=== PATIENT | female | born 2000 | race Two or more races ===

== ENCOUNTER 2020-06-09 22:51 | Emergency (ER) | payer OTHER ==
[2020-06-09 23:10] VITALS: BP 139/87
[2020-06-10] MEDS ORDERED: ACETAMINOPHEN 325 MG TABLET PO ONE (00:07)
--- NOTE | 2020-06-10 00:09 | ER Document Report ---
ED Medical Screen (RME) - General Chief Complaint: Vaginal Bleeding Stated Complaint: VAGINAL BLEEDING Time Seen by Provider: 06/10/20 00:04 Mode of Arrival: Ambulatory Information source: Patient Notes: HPI; 19-year-old female presents to the emergency room complaining of abdominal cramping for the past 2 weeks that is gotten worse today. Also complaining of vaginal bleeding today. LMP April 26. Sexually active no use of control. Has not had a test. Denies any previous pregnancies. PE: Alert and oriented x3. Lungs: Clear to auscultation without rales, rhonchi, wheezes. Heart: Grade 2 out of 6 systolic murmur without rubs or gallops. Unable to do full exam in triage. I have greeted and performed a rapid initial assessment of this patient. A comprehensive ED assessment and evaluation of the patient, analysis of test results and completion of the medical decision making process will be conducted by additional ED providers. I have specifically instructed the patient or family members with the patient to immediately return to any nursing staff should anything change in the patient's condition or with their chief complaint. TRAVEL OUTSIDE OF THE [place] IN LAST 30 DAYS: No Physical Exam - Vital signs Vitals: Temp Pulse Resp BP Pulse Ox 98.6 F 117 H 16 139/87 H 100 06/09/20 22:52 06/09/20 22:52 06/09/20 22:52 06/09/20 22:52 06/09/20 22:52 Course - Vital Signs Vital signs: Temp Pulse Resp BP Pulse Ox 98.6 F 117 H 16 139/87 H 100 06/09/20 22:52 06/09/20 22:52 06/09/20 22:52 06/09/20 22:52 06/09/20 22:52
[2020-06-10 01:27] LABS: APPEARANCE,URINE SLIGHTLY-CLOUDY; BILIRUBIN,URINE NEGATIVE (NEGATIVE); COLOR,URINE YELLOW; GLUCOSE, URINE NEGATIVE (NEGATIVE); KETONES,URINE NEGATIVE (NEGATIVE); LEUKOCYTE ESTERASE,URINE TRACE (NEGATIVE); NITRITE,URINE NEGATIVE (NEGATIVE); PROTEIN,URINE NEGATIVE (NEGATIVE); UROBILINOGEN,URINE NEGATIVE mg/dL (<2.0)
[2020-06-10 01:27] LABS: ABSOLUTE EOSINOPHILS # (AUTO) 0.4 10^3/uL (0.0-0.6); ABSOLUTE LYMPHOCYTES (AUTO) 2.8 10^3/uL (0.5-4.7); ABSOLUTE MONOCYTES (AUTO) 0.5 10^3/uL (0.1-1.4); ABSOLUTE NEUT (AUTO) 3.4 10^3/uL (1.7-8.2); BASOPHILS % (AUTO) 0.7 % (0-2); EOSINOPHILS % (AUTO) 6.1 % (0-6); HEMATOCRIT 44.7 % (36.0-47.0); HEMOGLOBIN 15.5 g/dL (12.0-15.5); LYMPHOCYTES % (AUTO) 38.9 % (13-45); MEAN CORPUSCULAR HEMOGLOBIN 29.7 pg (27.0-33.4); MEAN CORPUSCULAR HGB CONC 34.7 g/dL (32.0-36.0); MEAN CORPUSCULAR VOLUME 86 fl (80-97); MONOCYTES % (AUTO) 7.3 % (3-13); PLATELET COUNT 226 10^3/uL (150-450); RED BLOOD COUNT 5.22 10^6/uL (3.72-5.28); RED CELL DISTRIBUTION WIDTH 13.5 % (11.5-14.0); TOTAL CELLS COUNTED % (AUTO) 100 %; WHITE BLOOD COUNT 7.2 10^3/uL (4.0-10.5)
[2020-06-10 01:47] LABS: ALBUMIN 4.8 g/dL (3.5-5.0); ALKALINE PHOSPHATASE 60 U/L (38-126); ANION GAP 10 (5-19); ASPARTATE AMINO TRANSFERASE 24 U/L (14-36); BILIRUBIN,TOTAL 0.4 mg/dL (0.2-1.3); BLOOD UREA NITROGEN 16 mg/dL (7-20); CALCIUM 9.9 mg/dL (8.4-10.2); CARBON DIOXIDE 26 mmol/L (22-30); CHLORIDE 104 mmol/L (98-107); GLUCOSE 113 mg/dL (75-110); TOTAL PROTEIN 7.7 g/dL (6.3-8.2)
== END 2020-06-10 04:25 | disposition left against medical advice (07) ==
LOC: ER 22:51
DX: N93.9 Abnormal uterine and vaginal bleeding, unspecified (principal); R10.9 Unspecified abdominal pain; Z53.20 Procedure and treatment not carried out because of patient's decision for unspecified reasons
CPT/HCPCS: 36415; 80053; 81001; 84702; 85025; 86900; 86901; 99281

== ENCOUNTER 2020-09-18 21:14 | Emergency (ER) | payer OTHER ==
[2020-09-18] MEDS ORDERED: ACETAMINOPHEN 325 MG TABLET PO ONE (21:42)
--- NOTE | 2020-09-18 21:43 | ER Document Report ---
ED Medical Screen (RME) - General Chief Complaint: Fever Stated Complaint: FEVER,SORE THROAT,COUGH Time Seen by Provider: 09/18/20 21:32 Mode of Arrival: Ambulatory Information source: Patient Notes: HPI; 19-year-old female past medical history significant for anemia presents to the emergency room complaining of subjective fever, sore throat, runny nose, chills, and headache for the past 4 days. Has been using rrwi-kda-mclglfy cold medicine without relief. No COVID-19 exposure. Hrmrsi-qq-lmx with similar symptoms. No other known ill contacts. PE: Alert and oriented x3. Lungs: Clear to auscultation without rales, rhonchi, wheezes. Heart: Tachycardic without murmurs, rubs, gallops. I have greeted and performed a rapid initial assessment of this patient. A comprehensive ED assessment and evaluation of the patient, analysis of test results and completion of the medical decision making process will be conducted by additional ED providers. I have specifically instructed the patient or family members with the patient to immediately return to any nursing staff should anything change in the patient's condition or with their chief complaint. TRAVEL OUTSIDE OF THE [place] IN LAST 30 DAYS: No Physical Exam - Vital signs Vitals: Temp Pulse Resp BP Pulse Ox 98.2 F 114 H 18 130/87 H 95 09/18/20 21:25 09/18/20 21:25 09/18/20 21:25 09/18/20 21:25 09/18/20 21:25 Course - Vital Signs Vital signs: Temp Pulse Resp BP Pulse Ox 98.2 F 114 H 18 130/87 H 95 09/18/20 21:25 09/18/20 21:25 09/18/20 21:25 09/18/20 21:25 09/18/20 21:25
--- NOTE | 2020-09-18 22:46 | RADIOLOGY REPORT (SQ) ---
EXAM DESCRIPTION: Site: CHEST SINGLE VIEW RP: XR CHEST 1 VIEW CLINICAL HISTORY: 19 years Female; cough; COMPARISON: None. FINDINGS: Lungs: Lungs are clear, with no focal infiltrate, pneumothorax, or pleural effusion. Mediastinum: Mediastinum is within normal limits for this positioning. Bones: Thoracolumbar scoliosis is noted. No acute bone findings. IMPRESSION: 1. No acute pulmonary findings. 2. Scoliosis
[2020-09-19 01:38] LABS: A TYPE INFLUENZA AG NEGATIVE (NEGATIVE); B INFLUENZA AG NEGATIVE (NEGATIVE)
--- NOTE | 2020-09-19 03:46 | ER Document Report ---
ED Flu Like - General Chief Complaint: Flu Symptoms Stated Complaint: FEVER,SORE THROAT,COUGH Time Seen by Provider: 09/18/20 21:32 Mode of Arrival: Ambulatory TRAVEL OUTSIDE OF THE [place] IN LAST 30 DAYS: No - HPI Notes: Patient is a 19-year-old female with a past medical history of anemia who presents with cough, headaches, sore throat for the past 4 days. Her qmcpvh-jn-hst has similar symptoms and is staying with them. She denies contact with anyone Covid positive. No chest pain or shortness of breath. No diarrhea, vomiting, abdominal pain. She states the cough is not productive. She has loss of taste. She has not taken her temperature but has felt warm. She has been taking adqn-kqr-lszieie medications. - Related Data Allergies/Adverse Reactions: No Known Allergies Allergy (Unverified 09/18/20 23:34) Past Medical History - General Information source: Patient - Social History Smoking Status: Never Smoker Frequency of alcohol use: None Drug Abuse: None Family History: Reviewed & Not Pertinent Review of Systems - Review of Systems Notes: CONSTITUTIONAL: No fatigue or weight loss. Positive for fever. SKIN: No rash. HENT: No congestion or ear pain. Positive for sore throat. EYES: No recent vision problems or eye pain. CARDIOVASCULAR: No chest pain or edema. RESPIRATORY: Positive for cough. No congestion or wheezing. GASTROINTESTINAL: No abdominal pain, nausea, vomiting, bloody stools or diarrhea. GENITOURINARY: No dysuria. MUSCULOSKELETAL: No joint pain or swelling. LYMPHATIC: No swollen glands. NEUROLOGIC: No seizures. No focal weakness or sensory changes. Positive for headaches. HEMATOLOGIC: No unusual bruising or bleeding. PSYCHIATRIC: No depression or anxiety. Physical Exam - Vital signs Vitals: Temp Pulse Resp BP Pulse Ox 98.2 F 114 H 18 130/87 H 95 09/18/20 21:25 09/18/20 21:25 09/18/20 21:25 09/18/20 21:25 09/18/20 21:25 - General General appearance: Appears well Notes: GENERAL: No acute distress, non-toxic appearance. HEAD: Normal with no signs of head trauma. EYES: EOMI, conjunctiva normal, no discharge. EARS: Hearing grossly intact. NOSE: Normal. NECK: Normal range of motion, no tenderness, supple, no lymphadenopathy, No adenopathy, no JVD. CHEST: Clear breath sounds bilaterally. No wheezes, rales, or rhonchi. CARDIAC: Regular rate and rhythm. S1 and S2, without murmurs, gallops, or rubs. VASCULAR: No Edema. ABDOMEN: Normal and soft with no tenderness. GENITOURINARY: Normal, No tenderness MUSCULOSKELETAL: Good range of motion of all major joints. Extremities without clubbing, cyanosis or edema. NEUROLOGICAL: Alert and oriented x 3. No focal sensory or strength deficits. Speech normal. Follows commands appropriately. PSYCHIATRIC: Normal Affect, judgement and mood. SKIN: Normal appearance with no rashes or lesions. Course - Re-evaluation Re-evalutation: 09/19/20 04:15 Patient appears well on exam. Likely, she has a viral illness. Patient was tested for Covid and the results are pending. She was informed that she needs to self isolate until she is called with a negative result and she is symptom- free. Patient was instructed on udfd-iir-hdykddw medications and staying hydrated. She was given strict return precautions including worsening symptoms, shortness of breath, chest pain, any other concerning signs. - Vital Signs Vital signs: Temp Pulse Resp BP Pulse Ox 97.7 F 71 18 137/88 H 100 09/19/20 03:54 09/19/20 03:54 09/18/20 21:25 09/19/20 03:54 09/19/20 03:54 - Diagnostic Test Radiology reviewed: Image reviewed, Reports reviewed Discharge - Discharge Clinical Impression: Cough, Suspected COVID-19 virus infection Upper respiratory infection Qualifiers: URI type: unspecified URI Qualified Code(s): J06.9 - Acute upper respiratory infection, unspecified Condition: Stable Disposition: HOME, SELF-CARE Instructions: COVID-19 Guidance for Persons Under Investigation, Upper Respiratory Illness ([facility]) Additional Instructions: Your work-up today is reassuring. Your influenza and strep swabs were negative. Your COVID-19 test is pending. You will be called with the results. You must self isolate until you are called with a negative result and are symptom-free. Please return to the ER for any shortness of breath, chest pain, worsening symptoms.
[2020-09-19 03:55] VITALS: BP 137/88
== END 2020-09-19 03:57 | disposition home or self-care (01) ==
LOC: ER 21:14
DX: U07.1 COVID-19 (principal); J06.9 Acute upper respiratory infection, unspecified; R50.9 Fever, unspecified; J02.9 Acute pharyngitis, unspecified; R05 Cough; D64.9 Anemia, unspecified; R51.9 Headache, unspecified; R43.9 Unspecified disturbances of smell and taste
CPT/HCPCS: 99284; 87070; 87880; 87635; 87804; 71045; C9803